=== PATIENT | male | born 1955 | race Caucasian/White ===

== ENCOUNTER 2022-01-05 09:27 | Outpatient (CLI) | payer OTHER, MEDICARE, SELFPAY ==
[2022-01-05 13:54] LABS: Chloride* 103 mmol/L (96-114)
[2022-01-05 13:55] LABS: Potassium* 3.6 mmol/L (3.6-5.1); Sodium* 139 mmol/L (135-149)
[2022-01-05 13:57] LABS: Carbon Dioxide* 29 mmol/L (20-32); Cholesterol* 178 mg/dL (90-199); Estimated Glomerular Filt Rate 82 ml/min
[2022-01-05 13:58] LABS: Blood Urea Nitrogen* 27 mg/dL (7-30); Calcium* 9.5 mg/dL (8.4-10.6); Glucose* 111 mg/dL (60-115); HDL Cholesterol* 32 mg/dL (>=40); LDL Cholesterol Calculated 123 mg/dL (<100); Triglycerides* 117 mg/dL (40-149)
[2022-01-08 15:58] LABS: PSA Screen* 1.11 ng/mL (0.10-4.00)
== END 2022-01-05 09:28 | disposition home or self-care (01) ==
LOC: LKVREF 09:27
PROVIDERS: PCP Family Medicine; Visit Provider Family Medicine
DX: Z00.00 Encounter for general adult medical examination without abnormal findings (principal); I10 Essential (primary) hypertension; F41.8 Other specified anxiety disorders; Z12.5 Encounter for screening for malignant neoplasm of prostate; Z13.6 Encounter for screening for cardiovascular disorders
CPT/HCPCS: 80048; 80061; 84153

== ENCOUNTER 2022-07-07 09:53 | Outpatient (CLI) | payer OTHER, SELFPAY ==
[2022-07-07 14:03] LABS: Aspartate Amino Transferase* 27 U/L (12-35); Bilirubin Direct* 0.1 mg/dL (0.0-0.5); Bilirubin Total* 0.9 mg/dL (0.1-1.5); Cholesterol* 95 mg/dL (90-199); HDL Cholesterol* 27 mg/dL (>=40); LDL Cholesterol Calculated 52 mg/dL (<100); Total Protein* 6.6 g/dL (6.0-8.3); Triglycerides* 80 mg/dL (40-149)
[2022-07-07 14:04] LABS: Alanine Aminotransferase* 27 U/L (4-50); Alkaline Phosphatase* 55 U/L (40-150)
== END 2022-07-07 09:54 | disposition home or self-care (01) ==
LOC: LKVREF 09:53
PROVIDERS: PCP Family Medicine; Visit Provider Family Medicine
DX: E78.5 Hyperlipidemia, unspecified (principal); I10 Essential (primary) hypertension
CPT/HCPCS: 80061; 80076

== ENCOUNTER 2022-12-02 08:09 | Outpatient (CLI) | payer OTHER, SELFPAY | END 2022-12-02 08:10 | disposition home or self-care (01) | LOC: LKVREF 08:10 | PROVIDERS: PCP Family Medicine; Visit Provider Family Medicine | DX: E78.5 Hyperlipidemia, unspecified (principal) | CPT/HCPCS: 80061 ==

== ENCOUNTER 2022-12-14 14:33 | Outpatient (CLI) | payer OTHER, SELFPAY ==
--- NOTE | 2022-12-14 15:39 | W.PM.STED ---
Stress Test Note Date Date of test: 12/14/22 Providers Primary care provider: Augustin Mason Stress test physician: aJke Garza Stress Test Note Stress test ordered: Stress Echo Indication for test: Short of breath, chest pain Stress test medicine: None Results discussion: Patient is a very nice 59-year-old gentleman who presents here for a stress echo, after discussion the risks benefits and side effects he would like to proceed. Cardiac stress test medical history form is reviewed. Pretest EKG shows normal sinus rhythm, ventricular rate of 73, blood pressure 144/84. Standard Neal protocol is employed over a time course of 6 minutes 35 seconds, achieved a metabolic equivalent of 7.9 Mets with a maximum heart rate of 130, which is 100% of the maximum. Patient did have some fatigue, and we had to stop the test is the fatigue/shortness of breath. There is no ST-wave changes suggestive of ischemia, there is no dysrhythmias, the patient recovered normally, and there was no complications. Impression: Negative Electrographic portion of stress echo, conditioning was felt to be moderate. Follow up suggested: await echo images these will be reviewed by Cardiology, clinical correlation with these will be needed, patient left this testing facility in excellent condition
[2022-12-14 15:40] VITALS: BP 172/88; PULSE 94; RESP 18
== END 2022-12-14 15:43 | disposition home or self-care (01) ==
PROVIDERS: PCP Family Medicine; Visit Provider Family Medicine
DX: R07.9 Chest pain, unspecified (principal); R06.02 Shortness of breath
CPT/HCPCS: 93016; 93325; 93351

== ENCOUNTER 2023-03-08 09:33 | Outpatient (CLI) | payer OTHER, SELFPAY | END 2023-03-08 09:34 | disposition home or self-care (01) | PROVIDERS: PCP Family Medicine; Visit Provider Family Medicine | DX: E78.5 Hyperlipidemia, unspecified (principal); I10 Essential (primary) hypertension; N40.1 Benign prostatic hyperplasia with lower urinary tract symptoms; R53.1 Weakness; R25.1 Tremor, unspecified; M54.9 Dorsalgia, unspecified | CPT/HCPCS: 80061; 84153; 84443; 84460 ==

== ENCOUNTER 2023-08-25 13:32 | Outpatient (CLI) | payer OTHER, SELFPAY | END 2023-08-25 13:33 | disposition home or self-care (01) | PROVIDERS: PCP Family Medicine; Visit Provider Family Medicine | DX: E78.2 Mixed hyperlipidemia (principal); Z12.5 Encounter for screening for malignant neoplasm of prostate; G62.9 Polyneuropathy, unspecified | CPT/HCPCS: 80053; 80061; 82607; G0103 ==

== ENCOUNTER 2023-09-15 09:55 | Outpatient (CLI) | payer OTHER, SELFPAY | END 2023-09-15 09:56 | disposition home or self-care (01) | LOC: NFLDREF 09-16 13:05 | PROVIDERS: PCP Family Medicine; Referring Provider Family Medicine; Visit Provider Family Medicine | DX: D64.9 Anemia, unspecified (principal) | CPT/HCPCS: 82728; 83540; 83550 ==

== ENCOUNTER 2023-10-06 09:23 | Outpatient (CLI) | payer OTHER, SELFPAY ==
--- NOTE | 2023-10-06 11:10 | W.ANESCHARGE ---
Anesthesia Charges Start Date/Time Anesthesia Start Date: 10/06/23 Anesthesia Start Time: 10:41 Stop Date/Time Anesthesia Stop Date: 10/06/23 Anesthesia Stop Time: 11:09
--- NOTE | 2023-10-06 11:27 | W.ANESCHARGE ---
Anesthesia Charges Start Date/Time Anesthesia Start Date: 10/06/23 Anesthesia Start Time: 10:41 Stop Date/Time Anesthesia Stop Date: 10/06/23 Anesthesia Stop Time: 11:09
== END 2023-10-06 09:24 | disposition home or self-care (01) ==
LOC: OP CLINIC 09:24
PROVIDERS: PCP Family Medicine; Visit Provider Surgery
DX: K22.89 Other specified disease of esophagus (principal); K31.7 Polyp of stomach and duodenum
CPT/HCPCS: 00731; 43251; 88305; J2704